=== PATIENT | male | born 1960 | race Caucasian/White ===

== ENCOUNTER 2024-09-17 08:05 | Outpatient (CLI) | payer OTHER, SELFPAY ==
--- NOTE | 2024-09-17 08:26 | MR_ITS ---
WS: [id number] MRI LUMBAR SPINE NONCONTRAST HISTORY: RADICULAR PAIN BILATERAL LEGS COMPARISON: 02/10/2012 TECHNIQUE: Sagittal and axial multisequence imaging is submitted. Small central disc osteophyte protrusions at C3-4 and C5-6. Mild RIGHT curvature lumbar spine. Retrolisthesis of L1 and L2 by 2 mm. Disc spaces are all mildly desiccated and narrowed, most significant at L4-5. There is a small amount of marrow edema in the adjacent endplates of L4 and L5 greatest on the RIGHT. Conus terminates normally at L1-2 disc level. T12-L1: Mild disc bulging and facet arthritis. No significant stenosis. L1-L2: Asymmetric disc bulging to the RIGHT. RIGHT paracentral and foraminal broad-based disc protrusion encroaching upon the subarticular recess and RIGHT foramen. Thecal sac is being deformed. Mild bilateral foraminal stenosis and subarticular recess stenosis. Most significant encroachment is upon the RIGHT traversing L2 nerve root. L2-L3: Asymmetric disc bulging and osteophytic ridging. There is a large complex central to LEFT paracentral disc protrusion. Central disc protrusion and LEFT foraminal disc protrusion. Facet joint arthritis. Combination of findings resulting in moderate central with severe LEFT subarticular recess stenosis. There is significant contact on the LEFT traversing L3 nerve root. Moderate LEFT and mild RIGHT foraminal stenosis. L3-L4: Annular disc bulging and osteophytic ridging with ligamentum flavum and facet arthritis. Effacement of ventral CSF. Moderate sized RIGHT foraminal disc protrusion effacing fat. There is disc contact on the RIGHT L3 and L4 nerve root. Mild bilateral foraminal stenosis. Moderate central stenosis. L4-L5: Diffuse annular disc bulging with ligamentum flavum and facet arthritis. Complete effacement of CSF. Disc osteophyte disease on the RIGHT. Severe central, bilateral subarticular recess and RIGHT foraminal stenosis. L5-S1: Mild disc bulging with facet arthritis. Mild bilateral foraminal stenosis. RIGHT renal cyst 2.6 cm. MR/MR lumbar spine wo con* [id number] IMPRESSION: 1. Significant progression of stenosis and degenerative spondylosis since 2011. Progression of scoliosis. 2. L3-4: Severe central, bilateral subarticular recess and RIGHT foraminal sten osis due to disc osteophyte disease. 3. L3-4: Moderate central stenosis. Moderate size RIGHT foraminal disc protrusi on effacing fat. Disc contact on the RIGHT L3 and L4 nerve roots. Mild bilatera l foraminal stenosis. 4. L2-3: Large complex disc osteophyte LEFT paracentral with significant contac t on the LEFT traversing L3 nerve root. Moderate LEFT and mild RIGHT foraminal stenosis. 5. RIGHT paracentral and foraminal disc protrusion encroaching upon the subarti cular recess and RIGHT foramen. Mild bilateral foraminal and subarticular reces s stenosis. More significant contact on the traversing RIGHT L2 nerve root.
== END 2024-09-17 08:06 | disposition home or self-care (01) ==
LOC: RAD 08:07
PROVIDERS: PCP Family Medicine; Visit Provider Family Medicine
DX: M48.061 Spinal stenosis, lumbar region without neurogenic claudication (principal); M47.896 Other spondylosis, lumbar region; M25.78 Osteophyte, vertebrae; M79.604 Pain in right leg; M79.605 Pain in left leg
CPT/HCPCS: 72148

== ENCOUNTER 2024-09-21 10:59 | Outpatient (CLI) | payer OTHER, SELFPAY ==
--- NOTE | 2024-09-21 11:02 | USR_ITS ---
PROCEDURE INFORMATION: Exam: US Duplex Bilateral Lower Extremity Arteries Exam date and time: 09/21/2024 11:25 AM Age: 64 years old Clinical indication: Pain; Leg, lower; Bilateral; Additional info: Bilateral leg pain TECHNIQUE: Imaging protocol: Real-time ultrasound scan of the arteries of the bilateral lower extremities with 2-D kaminski scale, color Doppler flow and spectral waveform analysis. Images documented and saved. COMPARISON: No relevant prior studies available. FINDINGS: Right common femoral artery: There is occlusion present. Right superficial femoral artery: Monophasic Doppler waveform. Right popliteal artery: Monophasic Doppler waveform. Right calf/foot arteries: Monophasic Doppler waveforms. Left common femoral artery: No occlusion or significant stenosis. Normal waveform. Left superficial femoral artery: Monophasic Doppler waveform. Left popliteal artery: Monophasic Doppler waveform. Left calf/foot arteries: Monophasic waveforms noted. Soft tissues: Pressure measurements give an OBED of 0.52 on the right and 0.49 on the left. US/CV arterial duplex [facility] [id number] IMPRESSION: 1. 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
== END 2024-09-21 11:00 | disposition home or self-care (01) ==
PROVIDERS: PCP Family Medicine; Visit Provider Family Medicine
DX: M79.604 Pain in right leg (principal); M79.605 Pain in left leg; I73.9 Peripheral vascular disease, unspecified
CPT/HCPCS: 93925